=== PATIENT | male | born 1975 | race Caucasian/White ===

== ENCOUNTER 2018-10-24 10:00 | Emergency (ER) | payer OTHER ==
[2018-10-24] MEDS ORDERED: Acetaminophen 500 MG TAB ONE (10:31)
[2018-10-24 10:43] LABS: #Basophils 0.1 thou/uL (0.0-0.2); #Eosinphils 0.1 thou/uL (0.0-0.7); #Monocytes 0.6 thou/uL (0.11-0.59); #Neutrophils 6.1 thou/uL (1.40-6.50); %Basophils 1.3 % (0.0-1.0); %Eosinophils 0.9 % (0.0-10.0); %Lymphocytes 22.4 % (21.0-51.0); %Monocytes 7.2 % (0.0-10.0); %Neutrophils 68.4 % (42.0-75.0); Hemoglobin 15.9 g/dL (14.0-18.0); Mean Corpuscular HGB CONC 33.4 g/dL (32.0-36.0); Mean Corpuscular Hemoglobin 30.2 pg (27.0-31.0); Mean Corpuscular Volume 90.6 fL (78.0-98.0); Mean Platelet Volume 6.7 fL (7.4-10.4); Platelet Count 276 thou/uL (130-400); RBC Distribution Width 11.4 % (11.5-14.5); Red Blood Cell (RBC) Count 5.24 mill/uL (4.70-6.10); White Blood Cell (WBC) Count 8.9 thou/uL (4.8-10.8)
--- NOTE | 2018-10-24 10:43 | RAD ---
CHEST 1 VIEW: INDICATION: History of chest pain. COMPARISON: None. FINDINGS: Low lung volumes accentuate cardiac silhouette and pulmonary vasculature. No pleural effusion or pne umothorax is evident. No acute osseous abnormalities noted. IMPRESSION: No acute cardiopulmonary abnormality. POS: [facility]
[2018-10-24] MEDS ORDERED: Prochlorperazine 10 MG/2 ML VIAL IVP SCH (10:45)
[2018-10-24 11:04] LABS: ALT (SGPT) 30 U/L (8-55); AST (SGOT) 22 U/L (5-34); Albumin 4.6 g/dL (3.5-5.0); Alkaline Phosphatase 102 U/L (40-150); Anion Gap 12 mmol/L (10-20); BUN (Urea Nitrogen) 13 mg/dL (8.9-20.6); Bilirubin, Total 0.5 mg/dL (0.2-1.2); Calc. Creatinine Clearance 0 mL/min (70-130); Calcium 9.9 mg/dL (7.8-10.44); Carbon Dioxide 23 mmol/L (22-29); Chloride 106 mmol/L (98-107); Estimated GFR-MDRD Greater than 90; Glucose 108 mg/dL (70-105); Potassium 4.2 mmol/L (3.5-5.1); Protein, Total 7.6 g/dL (6.0-8.3); Sodium 137 mmol/L (136-145)
[2018-10-24] MEDS ORDERED: ISOVUE-370 76%-LOCM 1 ML ONE (12:48)
--- NOTE | 2018-10-24 13:01 | CT ---
CT ANGIOGRAM HEAD WITH AND WITHOUT CONTRAST CT ANGIOGRAM NECK WITH CONTRAST: DATE: 10/24/2018. TIME: 11:21 a.m. HISTORY: A 43-year-old male with headache. TECHNIQUE: Noncontrast CT head performed first. Next, IV injection of 100 mL of Isovue 370. Arterial bolus-chasing technique scan from alessandro to vertex of head. Coronal and sagittal 3D MIP reconstructions. FINDINGS: No significant calcified atherosclerotic plaque is visualized anywhere. The aortic arch, brachioceph alic, proximal right subclavian, left subclavian, bilateral common carotid, cervical bilateral recruitment internship al carotid, and bilateral vertebral, arteries, are normal, with no stenosis, dissection, or atheroscl erotic irregularity. Anterior and posterior circulation arteries of the [place] are normal in caliber. No eviden ce of intracranial aneurysm. No subarachnoid, intraaxial, subdural, or epidural hemorrhage. Ventricles are normal in size and con figuration. No mass effect or midline shift. Mild polypoid mucosal thickening in the bilateral maxi llary sinuses without air fluid levels. Mild mucosal thickening of bilateral ethmoid air cells. Sph enoid sinus and hypoplastic frontal sinuses, are clear. Bilateral tympanomastoid cavities are clear. Calvarium is intact. No extraaxial fluid collection. No evidence of cerebral infarction. IMPRESSION: Normal. POS: [facility]
== END 2018-10-24 14:32 | disposition home or self-care (01) ==
LOC: ERS 10:00
DX: R51 Headache (principal); R07.89 Other chest pain; F17.210 Nicotine dependence, cigarettes, uncomplicated
CPT/HCPCS: 36415; 70496; 70498; 71045; 80053; 83880; 84484; 85025; 85379; 93005; 94760; 96361; 96374; J0780; Q9966